=== PATIENT | male | born 1955 | race Caucasian/White ===

== ENCOUNTER 2019-11-10 13:02 | Inpatient (IN) | payer SELFPAY ==
[2019-11-10 14:30] LABS: #Monocytes 1.2 thou/uL (0.11-0.59); #Neutrophils 13.5 thou/uL (1.40-6.50); %Basophils 0.1 % (0.0-1.0); %Eosinophils 0.2 % (0.0-10.0); %Lymphocytes 6.2 % (21.0-51.0); %Monocytes 7.8 % (0.0-10.0); %Neutrophils 85.8 % (42.0-75.0); Hemoglobin 13.4 g/dL (14.0-18.0); Mean Corpuscular HGB CONC 31.5 g/dL (32.0-36.0); Mean Corpuscular Hemoglobin 27.6 pg (27.0-31.0); Mean Corpuscular Volume 87.5 fL (78.0-98.0); Mean Platelet Volume 8.3 fL (7.4-10.4); Platelet Count 672 thou/uL (130-400); RBC Distribution Width 12.1 % (11.5-14.5); Red Blood Cell (RBC) Count 4.84 mill/uL (4.70-6.10); White Blood Cell (WBC) Count 15.8 thou/uL (4.8-10.8)
[2019-11-10 14:54] LABS: ALT (SGPT) 107 U/L (8-55); AST (SGOT) 271 U/L (5-34); Albumin 3.4 g/dL (3.4-4.8); Alkaline Phosphatase 359 U/L (40-110); Anion Gap 28 mmol/L (10-20); BUN (Urea Nitrogen) 29 mg/dL (8.4-25.7); Bilirubin, Total 1.9 mg/dL (0.2-1.2); Calc. Creatinine Clearance 0 mL/min (70-130); Calcium 9.3 mg/dL (7.8-10.44); Carbon Dioxide 20 mmol/L (23-31); Chloride 91 mmol/L (98-107); Estimated GFR-MDRD 49; Globulin 4.4 g/dL (2.4-3.5); Glucose 262 mg/dL (80-115); Lipase 6 U/L (8-78); Potassium 5.7 mmol/L (3.5-5.1); Protein, Total 7.8 g/dL (5.8-8.1); Sodium 133 mmol/L (136-145)
[2019-11-10] MEDS ORDERED: Cefepime 2 GM VIAL ONE (15:27)
[2019-11-10] MEDS ORDERED: Senokot S 8.6-50 MG TAB PO PRN (15:53)
[2019-11-10] MEDS ORDERED: Bisacodyl 5 MG TAB PO PRN (15:53)
[2019-11-10] MEDS ORDERED: Acetaminophen 325 MG TAB PO PRN (15:53)
[2019-11-10] MEDS ORDERED: Morphine 2 MG/ML SYRINGE SLOW IVP PRN (15:57)
[2019-11-10] MEDS ORDERED: Ondansetron PF 4 MG/2 ML Vial IVP PRN (15:58)
[2019-11-10 16:59] LABS: CEA, Serum 7.96 ng/mL (< or = 5.0)
[2019-11-10 17:12] LABS: HBSAg Index 0.18 S/CO (0-0.99); Hep A IgM AB Non-Reactive (NonReactive); Hep A IgM S/CO 0.14 S/CO (0-0.79); Hep B Surf Ag Non-Reactive S/CO (NonReactive); Hep C IgG Ab Non-Reactive (NonReactive); Hep C Index 0.18 S/CO (0-0.79); Hepatitis B Core IgM Abs Non-Reactive (NonReactive)
[2019-11-10 17:39] VITALS: BMI 37.8
[2019-11-10] MEDS: Sodium Chloride 0.9% 1,000 ML IV SCH ×2 (18:44→20:49)
[2019-11-10] MEDS: Pantoprazole 40 MG VIAL IVP SCH (20:26)
[2019-11-10] MEDS: HYDROcodone/Acetaminophen 5/325 mg Tablet PO PRN (20:40)
--- NOTE | 2019-11-10 22:28 | HP ---
PRIMARY CARE PHYSICIAN: The patient reports that he was seen by a PA at [facility], unable to recall the name. CHIEF COMPLAINT: Abdominal discomfort associated with nausea and vomiting. HISTORY OF PRESENT ILLNESS: The patient is an unfortunate 63-year-old gentleman who has significant past medical history of diabetes type 2, hypertension, and dyslipidemia. He was presented to the ED in [place] about 10 days ago with similar complaint. At that time, he underwent CTA of the chest, abdomen, and pelvis. At that time, it was found that he has a 3.9-cm mediastinal mass adjacent to the esophagus, multiple pulmonology nodules. At that time, ER physician recommended that he needed to be admitted to the hospital for further workup, but he was concerned about his truck being towed. For that reason, he reports that he can follow up at outpatient, but due to COVID test that is pending, he is unable to see any doctors until today. His COVID came back negative. So, he came to ED for further workup. The patient reported in the past 2 weeks, he lost about 15 pounds. His symptom associated with epigastric pain. He was unable to eat. Most time, he only tolerates some full liquid diet. He denies any diarrhea. The patient reports that he had some subjective fever. He denies any recent travel history. No history of COVID exposure. The patient reports that he never had an EGD or colonoscopy done before. He denies any family members with histories of GI cancer. In the ED, his lab revealed that he had elevated LFT, with potassium of 5.7, white count of 15.8. No definitive source of infections identify. Given his symptomatology, hospitalist was asked to admit the patient for further GI workup. ALLERGIES: NO KNOWN DRUG ALLERGIES. HOME MEDICATIONS: The patient is unable to recall his home medications. REVIEW OF SYSTEMS: Complete review of systems has been reviewed and assessed with the patient. Negative and positive pertinent information noted in HPI. Otherwise, complete review of systems reviewed and negative. PAST MEDICAL HISTORY: 1. Hypertension. 2. Diabetes type 2. 3. Dyslipidemia. 4. Morbid obesity. PAST SURGICAL HISTORY: None. FAMILY HISTORY: The patient reports that his father had histories of prostate cancer. Otherwise, he denies any family history of GI cancer. SOCIAL HISTORY: The patient is a former smoker. He quit smoking about 15 years ago. He denies any history of alcohol or any recreational drug use. The patient reported that he lives in a trailer independently by himself. LABORATORY DATA: CBC; WBC 15.8, hemoglobin 13.4, hematocrit 42.4, and platelets 672. Chemistry; sodium 137, potassium 5.7, chloride is 91, carbon dioxide 20, BUN 29, creatinine is 1.4, calcium 9.3, total bilirubin is 1.9, AST 271, ALT 107, alkaline phosphatase 359. Lipase 6. CT aortic dissection protocol was done on 11/02/2019, no evidence of aortic dissections or aneurysmal dilation. There is a mass adjacent to the esophagus that could resemble enlarged lymph nodes or esophageal malignancy. There is slight thickening of the wall of the distal esophagus. There are enlarged lymph nodes in the upper retroperitoneum and his loyd hepatis regions as well as the retrocrural space. Slightly enlarged mediastinal lymph nodes are seen. This is concerning for metastatic disease. There are multiple pulmonary nodules concerning for metastatic disease. There is likely hepatic metastatic disease. PHYSICAL EXAMINATION: VITAL SIGNS: Blood pressure 139/89, pulse 95, respiratory rate 18, temperature is 97.8, O2 saturation 97% on room air. General Appearance: NAD, Alert and Oriented HEENT: Normal cephalic atraumatic, mucous membrane is moist, PERRLA Neck: Supple, no lymphadenopathy Cardiovascular: RRR, S1S2 Noted. No murmur Pulmonology: Clear to auscultation bilaterally. No crackles or wheezing Abdomen: Tender to palpation at epigastric area. Positive bowel sound Extremities: No edema, no cyanosis Neurologic: CN 2-12 grossly intact. No focal weakness Psych: AAO x3, normal affect Skin: No rash ASSESSMENT AND PLAN: This is an unfortunate 63-year-old gentleman who has significant past medical history of diabetes, hypertension, and dyslipidemia, who was presented to the ED with 2 weeks histories of abdominal discomfort associated with nausea, vomiting, and weight loss. The patient was initially seen at [place] ER on November 02, 2019 with a similar complaint. At that time, workup reviewed concerning for metastatic disease. However, the patient did not follow up until today. He came to the ER with similar complaint. He is now being admitted for further workup. 1. Epigastric abdominal pain associated with nausea and vomiting and weight loss , concern for underlying metastatic disease. Lipase wnl. 2. Metastatic disease suspect GI etiology as primary. 3. Multiple pulmonology nodules concerning for metastatic disease. 4. Elevated LFT, likely secondary to above. 5. Mild hyperkalemia. 6. Acute kidney injury - mild, likely secondary to poor p.o. intake. 7. Diabetes type 2. 8. Hypertension. 9. Dyslipidemia. The patient was admitted to medical floor for further GI workup. The patient will likely need EGD with tissue biopsy. I have discussed with GI, Dr. Mims. The patient is being evaluated by him. He also recommend MRCP given the fact that he has had elevated LFT. We would like to make sure there are no biliary tract compressions by masses in that way he can proceed with further interventions during the EGD procedure if necessary. The patient will keep on clear liquids for now, n.p.o. after midnight. We will place him on PPI IV b.i.d. IV fluid hydration. Repeat lab in a.m. I will check tumor markers including CEA, PSA, AFP, and acute hepatitis panel. We will start him on insulin sliding scale for now, check a hemoglobin A1c. GI prophylaxis. The patient currently is on PPI empirically as mentioned above. DVT prophylaxis. We will keep patient on SCD for now, with anticipated procedure. Code status: The patient is full code per his request. Job ID: [id number] MTDD
--- NOTE | 2019-11-11 02:42 | CON ---
DATE OF CONSULTATION: 11/10/2019 REASON FOR CONSULTATION: Abnormal GI imaging, abdominal pain. CONSULTING PROVIDER: Ashlie Gaxiola PA-C HISTORY OF PRESENT ILLNESS: The patient is a 63-year-old male with past medical history of diabetes, hyperlipidemia, hypertension, and GERD, initially presenting with complaints of fever and midepigastric abdominal pain. He states that he was in his usual state of health until approximately 2 weeks ago when he began having intermittent bouts of fever and midepigastric abdominal pain, for which the patient started taking increasing amounts of acetaminophen for control. The midepigastric abdominal pain was characterized as a pressure type sensation, would radiate to the entire abdomen, was constant with waxing/waning severity, and reached a severity of 9/10. This pain was worse with lying down, pressure to the region, and eating solid foods, particularly spicy foods and tomato based products, but the pain was also better with ingestion of ice cream and pain medications. With the continuation of this fever and abdominal pain, it prompted him to seek healthcare assistance at the ER, at which point, the patient underwent a CT scan on November 02, 2019, which showed multiple lung nodules, the largest being 1.5 cm in size with emphysematous change. However, there was a 3.9 cm mediastinal mass adjacent to the esophagus with wall thickening at the GE junction as well as a large number of enlarged mediastinal lymph nodes, subtle hypodense lesions in the liver measuring up to 2.2 cm and loyd hepatis lymph nodes measuring up to 5.5 cm. In addition to these findings, fatty infiltration of the liver was also noted, but no evidence of cirrhotic morphology. The patient was advised to be admitted to the hospital for further workup, but ultimately left AMA. However, the patient presented back to the hospital on November 09 and is now willing to undergo treatment/evaluation. Currently, the patient states that he has been having increased diarrhea, having approximately 1-2 liquid bowel movements per day. He also did have nausea and vomiting x1 over the last week, but has not recurred. Lastly, he does endorse a weight loss of approximately 15 pounds over the last 2 to 3 weeks unintentionally. Although, he does deny constipation, hematemesis, melena, hematochezia, dysphagia, or odynophagia. REVIEW OF SYSTEMS: A 10-category review of systems was obtained with all responses negative except for the pertinent positives as listed in HPI. PAST MEDICAL HISTORY: As per HPI. PAST SURGICAL HISTORY: None. FAMILY HISTORY: Denies any GI malignancies. SOCIAL HISTORY: Denies any tobacco or alcohol use, but does have a former history of IV narcotics. OUTPATIENT MEDICATIONS: Unknown. ALLERGIES: NO KNOWN DRUG ALLERGIES. PHYSICAL EXAMINATION: VITAL SIGNS: Temperature 97.5, pulse 108, blood pressure 143/80, respiratory rate 20, and saturating 95% on room air. GENERAL: The patient was lying in bed, in no acute distress. Alert and oriented x4. HEENT: Normocephalic and atraumatic. NECK: Supple. No JVD or scleral icterus noted. CARDIOVASCULAR: Tachycardic rate, but regular rhythm with no discernible murmurs, gallops, or rubs. RESPIRATORY: Clear to auscultation bilaterally with no discernible wheezes or rales. ABDOMEN: Normoactive bowel sounds. Soft, nondistended. Tenderness to palpation in the midepigastric and right upper quadrant. EXTREMITIES: No cyanosis, clubbing, or edema. LABORATORY DATA: CBC with a white blood cell count of 15.8, hemoglobin 13.4, hematocrit 42.4, platelets 672. Chemistry with a sodium of 133, potassium 5.7, chloride 91, CO2 of 20, BUN 29, creatinine 1.44, glucose 262. AST 271, ALT 107, alkaline phosphatase 359, total bilirubin 1.9, lipase 6, albumin 3.4. IMAGING DATA: CT of the chest dissection protocol was obtained on November 02, 2019, which showed multiple lung nodules with the largest being 1.5 cm in size with the lung showing also emphysematous change. A 3.9 cm mediastinal mass adjacent to the esophagus and possibly involving the esophagus with wall thickening at the GE junction was seen in addition to a large number of enlarged mediastinal lymph nodes. Subtle hypodense lesions in the liver as well as lymph nodes in the loyd hepatis were concerning for metastatic disease. Fatty infiltration was also noted within the liver. ASSESSMENT AND PLAN: The patient is a 63-year-old male with past medical history of diabetes, hyperlipidemia, hypertension, and gastroesophageal reflux disease, presenting with increased midepigastric abdominal pain, fever, and abnormal GI imaging showing a mass adjacent to the esophagus concerning for malignancy with metastatic disease. Midepigastric abdominal pain/abnormal GI imaging; the patient is presenting with increased abdominal pain characterized as a pressure-type sensation that was located in the midepigastric region, but generalized into the entire abdomen and reaching a severity of 9/10. With worsening of this abdominal pain and in association with fever with T-max of 100.2 at home, it prompted the patient to seek healthcare assistance, where he had a CT scan showing a 3.9 cm mass adjacent to the esophagus with multiple mediastinal lymph nodes in addition to hypodense lesions within the liver and multiple loyd hepatis lymph nodes measuring up to 5.5 cm. At this time, it looks consistent with either an esophageal adenocarcinoma with metastatic disease to the lungs, liver, and lymph nodes versus a mediastinal malignancy again with metastatic disease. However, based on his current LFT profile, it is more indicative of an obstructive-type process, but could also be due to infiltration of this metastatic disease, although further imaging is needed to clarify if this is an obstructive process. RECOMMENDATIONS: 1. Would obtain an MRCP for further characterization of the biliary tree to determine if there is an obstructive process in need of stent placement prior to treatment of this metastatic disease. 2. We would continue to trend his LFTs daily for worsening of the obstructive process or inflammation of the liver. 3. Once the MRCP is known, then I would recommend an EGD for intraluminal evaluation and possible biopsies of the esophageal mass. If biliary obstruction is noted on the MRCP, then an ERCP could be performed at the same time with biliary stent placed at that time as well. 4. Pain control per primary team. 5. We will place the patient on pantoprazole 40 mg IV daily for possible acid reflux. We will continue to follow. Please call with any questions. Job ID: [id number]
[2019-11-11 05:55] LABS: INR-International Normal Ratio 1.3; Prothrombin Time 15.8 sec (12.0-14.7)
[2019-11-11 06:11] LABS: ALT (SGPT) 76 U/L (8-55); AST (SGOT) 145 U/L (5-34); Albumin 2.8 g/dL (3.4-4.8); Alkaline Phosphatase 273 U/L (40-110); Anion Gap 17 mmol/L (10-20); BUN (Urea Nitrogen) 34 mg/dL (8.4-25.7); Bilirubin, Total 1.4 mg/dL (0.2-1.2); Calc. Creatinine Clearance 144 mL/min (70-130); Calcium 8.4 mg/dL (7.8-10.44); Carbon Dioxide 24 mmol/L (23-31); Chloride 96 mmol/L (98-107); Estimated GFR-MDRD 85; Globulin 3.4 g/dL (2.4-3.5); Glucose 141 mg/dL (80-115); Protein, Total 6.2 g/dL (5.8-8.1); Sodium 133 mmol/L (136-145)
[2019-11-11 06:13] LABS: Band 1 % (5-11); Eosinophils 1 % (0-10); Hemoglobin 11.8 g/dL (14.0-18.0); Lymphocytes 4 % (21-51); MDiff Complete? YES; Mean Corpuscular HGB CONC 31.7 g/dL (32.0-36.0); Mean Corpuscular Hemoglobin 27.2 pg (27.0-31.0); Mean Corpuscular Volume 85.8 fL (78.0-98.0); Mean Platelet Volume 7.6 fL (7.4-10.4); Monocytes 9 % (0-10); Neutrophil 85 % (42-75); Platelet Count 709 thou/uL (130-400); Platelet Morphology Comment Appears Increased; RBC Distribution Width 11.9 % (11.5-14.5); RBC Morphology Normal; Red Blood Cell (RBC) Count 4.33 mill/uL (4.70-6.10); White Blood Cell (WBC) Count 17.7 thou/uL (4.8-10.8)
[2019-11-11] MEDS: Pantoprazole 40 MG VIAL IVP SCH ×2 (07:33→21:01)
--- NOTE | 2019-11-11 09:49 | RAD ---
RADIOGRAPH CHEST 1 VIEW: DATE: 11/11/2019 HISTORY: 63-year-old male with leukocytosis FINDINGS: There is no airspace density, pulmonary edema, or pneumothorax. The lateral costophrenic angles are n ot effaced. There is a noncalcified pulmonary nodule overlying the right lung base. See separate report of recent aortic CTA. IMPRESSION: 1. No acute pulmonary findings. 2. pulmonary nodule at right lung base.
[2019-11-11 10:23] LABS: Bacteria/HPF None Seen HPF (None Seen); Bilirubin Negative (Negative); Blood, Urine Trace (Negative); Clarity Clear (Clear); Glucose, Urine (Dipstick) Normal (Negative); Ketone, Urine 40 mg/dL (Negative); Leukocyte Negative Leu/uL (Negative); Nitrite Negative (Negative); Protein, Urine (Dipstick) 70 mg/dL (Neg-Trace); RBC/HPF 0-3 HPF (0-3); Specific Gravity, Urine 1.021 (1.002-1.036); Squamous Epithelial 0-3 HPF (0-3); Urobilinogen 3 mg/dL (Less than 2); WBC/HPF 0-3 HPF (0-3); pH, Urine 5.5 (5.0-9.0)
--- NOTE | 2019-11-11 11:46 | MRI ---
MRI OF THE ABDOMEN WITHOUT CONTRAST: INDICATION: A 63-year-old male with metastatic disease and elevated LFTs. COMPARISON: CTA aortic dissection protocol dated 11/02/2019. TECHNIQUE: Multiplanar, multisequence MR images were obtained of the abdomen utilizing MRCP protocol. The patie nt had difficulty in completing the full examination due to pain and discomfort. Respiratory motion artifact and positional changes during the examination heavily limit the evaluation. FINDINGS: As seen on the comparison CT examination dated 11/02/2019 are multiple signal abnormalities within the liver, many of which in the right hepatic lobe are nodular and consistent with multiple metastatic l esions. One of the largest measures 3.2 cm within the dome. There is a large area of heterogeneous T2 increased signal involving portions of the right hepatic lobe as well as the left hepatic lobe eleonora suring approximately 24 cm suspicious for a large hepatic malignancy. There are diminished flow void s within the distal left main portal vein suspicious for thrombosis. The left main portal vein appea rs thrombosed on the CTA examination dated 11/02/2019. There are multiple enlarged lymph nodes within the upper abdomen and paraspinal and paraesophageal re gion. One of the largest is seen within the upper abdomen, adjacent to the posterior aspect of the p osterior aspect of the gastric cardia, measuring 5.6 cm. No visible intraluminal gallstone is evident. The common bile duct is of normal caliber measuring 3. 5 mm. Main pancreatic duct is normal appearing. Adrenal glands are normal appearing. The kidneys a re normal appearing. There is a mild left UPJ obstruction, likely chronic. The spleen is normal siz e measuring 11 cm. There is mild free fluid within the abdomen. IMPRESSION: 1. Large area of heterogeneous signal abnormality involving portions of the right hepatic lobe and l eft hepatic lobe are suspicious for an invasive hepatic malignancy such as a hepatocellular carcinoma or cholangiocarcinoma. There is thrombosis of the left main portal vein. There are numerous signal abnormalities within the hepatic lobe suspicious for metastatic disease. There are numerous enlarge d lymph nodes within the paraesophageal upper abdomen consistent with malignant lymph node spread of disease. There is a pulmonary nodule in the right lower lobe consistent with pulmonary metastatic di sease. 2. No intraluminal gallstones or common bile duct stone demonstrate 3. Mild ascites. POS: BH
--- NOTE | 2019-11-11 13:01 | PDOC.HOSPP ---
- Subjective Encounter Date: 11/11/19 Encounter Time: 12:45 Subjective: Patient returned from [facility]. He feels quite heavy on his right upper quadrant. discussed his elevated tumor markers and possible abnormality including GI related malignancy. Patient is not seems to be in extreme distress- stating that he is kind of expected. His father had unknown cancer - Objective Vital Signs & Weight: Vital Signs (12 hours) Temp Pulse Resp BP Pulse Ox 11/11/19 11:16 98.2 F 99 18 113/75 98 11/11/19 07:35 98 11/11/19 07:14 97.4 F L 115 H 20 114/81 97 11/11/19 03:59 97.6 F 99 18 112/67 98 Weight Weight 271 lb I&O: 11/10/19 11/11/19 11/12/19 06:59 06:59 06:59 Intake Total 1380 Output Total 800 Balance 580 Result Diagrams: 11/11/19 05:34 11/11/19 05:34 Additional Labs: Accuchecks 11/10/19 13:51 POC Glucose 284 H Hospitalist ROS - Medication Medications: Active Medications Generic Name Dose Route Start Last Admin Trade Name Freq PRN Reason Stop Dose Admin Hydrocodone Bitart/Acetaminophen 1 tab 11/10/19 15:53 11/10/19 20:40 [place] 5/325 PO 1 tab Q4H PRN Administration Moderate Pain (4-6) Sodium Chloride 1,000 mls @ 75 mls/hr 11/10/19 16:00 11/10/19 20:49 Normal Saline 0.9% IV 1,000 mls .[id number] NITZA Administration Pantoprazole Sodium 40 mg 11/10/19 21:00 11/11/19 07:33 Protonix IVP 40 mg Q12HR NITZA Administration - Exam General Appearance: NAD, awake alert Eye: PERRL ENT: normocephalic atraumatic Neck: supple Heart: RRR Respiratory: CTAB, normal chest expansion Gastrointestinal: soft, normal bowel sounds Neurological: no focal deficits Psychiatric: A&O x 3 Hosp A/P - Plan Abdominal discomfort weight loss Elevated CEA and alpha protein level. Elevated alkaline phosphatase Hyperbilirubinemia Normocytic anemia Transaminitis -Hepatitis panel negative Concern for a GI malignancy and possible mets to the liver versus hepatocellular carcinoma Right lower lobe pulmonary nodule probably metastatic disease Hypokalemia Acute kidney injury Type 2 diabetes mellitus MRCP shows large area of heterogeneous signal abnormality in the right hepatic lobe as well as left. -Concerning for hepatocellular carcinoma versus cholangiocarcinoma Left main portal vein thrombosis - likely no intervention with anticoagulation Paraesophageal lymphadenopathy No gallstones or common bile duct stones noted -Endoscopy evaluation -Protonix twice a day -Will request oncology evaluation after knowing the primary.
[2019-11-11] MEDS: HYDROcodone/Acetaminophen 5/325 mg Tablet PO PRN ×3 (13:43→21:44)
[2019-11-11] MEDS: Sodium Chloride 0.9% 1,000 ML IV SCH (17:46)
--- NOTE | 2019-11-11 19:10 | PRG ---
DATE OF SERVICE: 11/11/2019 REASON FOR CONSULTATION: Abnormal GI imaging, abdominal pain. SUBJECTIVE: Today, the patient states that his abdominal pain has improved a little bit, but has not resolved and continues to be present in the midepigastric/right upper quadrant region. He was able to undergo MRCP earlier today with some difficulty with the procedure itself, but was able to complete it successfully. He has also been able to tolerate a clear liquid diet without difficulty with evidence of dysphagia or odynophagia. He is concerned about the long-term management of a probable malignancy with metastatic spread and had questions about surgical versus medical interventions. Currently, he denies any nausea, vomiting, fevers, chills, hematemesis, melena, or hematochezia. OBJECTIVE: VITAL SIGNS: Temperature 97.5, pulse 91, blood pressure 129/84, respiratory rate 18, saturating 98% on room air. GENERAL: The patient was sitting at bedside, in no acute distress. Alert and oriented x4. CARDIOVASCULAR: Regular rate and rhythm. RESPIRATORY: Clear to auscultation bilaterally. ABDOMEN: Normoactive bowel sounds. Soft, nondistended. Tenderness to palpation in the midepigastric and right upper quadrant with fullness noted in the right upper quadrant. EXTREMITIES: No cyanosis, clubbing, or edema. LABORATORY DATA: CBC with a white blood cell count of 17.7, hemoglobin 11.8, hematocrit 37.1, platelets 709. INR 1.3. Chemistry with a sodium of 133, potassium 4, chloride 96, CO2 of 24, BUN 34, creatinine 0.9, glucose 141. AST 145, ALT 76, alkaline phosphatase 273, total bilirubin 1.4. IMAGING DATA: The patient underwent MRCP on November 11, 2019, which showed multiple signal abnormalities within the liver, many of which in the right hepatic lobe were nodular and consistent with metastatic lesion. The largest being 3.2 cm within the dome. However, there was a large area of heterogeneous T2 increased signal involving portions of the right hepatic lobe as well as the left hepatic lobe measuring approximately 24 cm in size, suspicious for a large hepatic malignancy. There were diminished flow voids within the distal left main portal vein consistent with portal vein thrombosis. Multiple large lymph nodes were also seen in the upper abdomen and paraspinal and paraesophageal region, the largest measuring up to 5.6 cm in size. No visible intraluminal gallstone was evident and the common bile duct was of normal caliber measuring 3.5 mm in size. The main pancreatic duct was also normal-appearing. ASSESSMENT AND PLAN: The patient is a 63-year-old male with past medical history of diabetes, hyperlipidemia, hypertension, and GERD, presenting with increased midepigastric abdominal pain, fever, and abnormal GI imaging showing metastatic disease with an unknown primary at this time, but strongly concerning for hepatocellular carcinoma. Midepigastric pain/abnormal GI imaging. The patient is presenting with increased abdominal pain characterized as a pressure-type sensation in the midepigastric region that had been present for the last few weeks. This was associated with fever with a maximum temperature of 100.2 at home. On initial evaluation at outside ER, he had a CT scan showing a 3.9 cm mass adjacent to the esophagus in addition to lymphadenopathy concerning for esophageal adenocarcinoma with metastatic disease to the lung, liver, and lymph nodes. However, based on MRCP obtained on November 11, 2019, it appears that there may be a 24 cm mass within the liver which is strongly concerning for the presence of hepatocellular carcinoma (which can generate a fever). When coupled with an alpha fetoprotein of 3728, it is also strongly concerning for the presence of a primary liver malignancy. RECOMMENDATIONS: 1. Would continue to trend his LFTs daily as part of continued monitoring of his liver and possible obstructive type picture. 2. Would recommend an upper endoscopy tomorrow for intraluminal evaluation of the possible esophageal mass. ERCP is not indicated at this time given lack of obstruction on MRCP with the elevated LFTs most likely due to metastatic lesions. 3. Pain control per primary team. 4. Continue pantoprazole 40 mg IV daily. 5. If the upper endoscopy tomorrow is negative for any intraluminal abnormalities, I would consult Interventional Radiology for possible liver biopsy to obtain a diagnosis of the primary malignancy and/or consultation of Medical Oncology for further evaluation. We will continue to follow. Please call with any questions. Job ID: [id number]
[2019-11-12] MEDS: HYDROcodone/Acetaminophen 5/325 mg Tablet PO PRN ×5 (04:16→20:23)
[2019-11-12 05:40] LABS: #Eosinphils 0.1 thou/uL (0.0-0.7); #Lymphocytes 1.5 thou/uL (1.20-3.40); #Monocytes 1.5 thou/uL (0.11-0.59); #Neutrophils 9.1 thou/uL (1.40-6.50); %Basophils 0.3 % (0.0-1.0); %Eosinophils 0.5 % (0.0-10.0); %Monocytes 12.1 % (0.0-10.0); %Neutrophils 75.2 % (42.0-75.0); Hemoglobin 11.5 g/dL (14.0-18.0); Mean Corpuscular HGB CONC 32.3 g/dL (32.0-36.0); Mean Corpuscular Hemoglobin 27.8 pg (27.0-31.0); Mean Corpuscular Volume 86.1 fL (78.0-98.0); Mean Platelet Volume 7.6 fL (7.4-10.4); Platelet Count 662 thou/uL (130-400); RBC Distribution Width 11.8 % (11.5-14.5); Red Blood Cell (RBC) Count 4.12 mill/uL (4.70-6.10); White Blood Cell (WBC) Count 12.1 thou/uL (4.8-10.8)
[2019-11-12 05:45] LABS: INR-International Normal Ratio 1.2; Prothrombin Time 15.2 sec (12.0-14.7)
[2019-11-12 06:02] LABS: ALT (SGPT) 56 U/L (8-55); AST (SGOT) 100 U/L (5-34); Albumin 2.6 g/dL (3.4-4.8); Alkaline Phosphatase 299 U/L (40-110); Anion Gap 14 mmol/L (10-20); BUN (Urea Nitrogen) 23 mg/dL (8.4-25.7); Bilirubin, Total 1.5 mg/dL (0.2-1.2); Calc. Creatinine Clearance 175 mL/min (70-130); Calcium 8.2 mg/dL (7.8-10.44); Carbon Dioxide 26 mmol/L (23-31); Chloride 99 mmol/L (98-107); Estimated GFR-MDRD Greater than 90; Glucose 119 mg/dL (80-115); Potassium 3.9 mmol/L (3.5-5.1); Protein, Total 5.6 g/dL (5.8-8.1); Sodium 135 mmol/L (136-145)
[2019-11-12] MEDS: Pantoprazole 40 MG VIAL IVP SCH ×2 (08:38→20:24)
[2019-11-12] MEDS: Sodium Chloride 0.9% 1,000 ML IV SCH ×2 (09:46→23:48)
[2019-11-12] MEDS ORDERED: Dextrose 50% Abboject 50 ML SYRINGE IVP PRN (10:22)
[2019-11-12] MEDS ORDERED: Dextrose 5% in Water 1,000 ML IV PRN (10:22)
[2019-11-12] MEDS ORDERED: PROPOFOL 200 MG/20 ML VIAL ONE (10:29)
[2019-11-12] MEDS ORDERED: Lidocaine 1% PF 5 ML VIAL ONE (10:29)
[2019-11-12 10:47] LABS: SARS-CoV-2 NAA Rapid Test Not Detected (NotDetected)
[2019-11-12] MEDS ORDERED: Ondansetron HCl/PF 4 MG/2 ML Vial IVP PRN (11:56)
[2019-11-12] MEDS ORDERED: Promethazine HCl 25 MG/ML VIAL SLOW IVP PRN (11:56)
[2019-11-12] MEDS ORDERED: Promethazine HCl 25 MG/ML VIAL IM PRN (11:56)
[2019-11-12 12:37] LABS: Total PSA 0.1 ng/mL (0.0-4.0)
--- NOTE | 2019-11-12 13:58 | PDOC.HOSPP ---
- Subjective Encounter Date: 11/12/19 Encounter Time: 09:40 Subjective: Patient is waiting to go for EGD. He is quite thirsty this morning. He is also quite anxious about his clinic prognosis. I discussed the care plan Including inviting oncologist to be on board. Patient is very active at baseline; [place] that keeps him busy for the most part of the day. Except the last week or so he was not very active given his symptoms. - Objective Vital Signs & Weight: Vital Signs (12 hours) Temp Pulse Resp BP Pulse Ox 11/12/19 08:00 97.4 F L 104 H 20 115/78 95 11/12/19 03:33 98.1 F 87 18 112/78 95 Weight Admit Weight 271 lb Weight 271 lb I&O: 11/11/19 11/12/19 11/13/19 06:59 06:59 06:59 Intake Total 1380 3300 Output Total 800 Balance 580 3300 Result Diagrams: 11/12/19 05:21 11/12/19 05:22 Additional Labs: Accuchecks 11/12/19 11:09 POC Glucose 194 H Hospitalist ROS - Medication Medications: Active Medications Generic Name Dose Route Start Last Admin Trade Name Freq PRN Reason Stop Dose Admin Hydrocodone Bitart/Acetaminophen 1 tab 11/10/19 15:53 11/12/19 12:24 [place] 5/325 PO 1 tab Q4H PRN Administration Moderate Pain (4-6) Sodium Chloride 1,000 mls @ 75 mls/hr 11/10/19 16:00 11/12/19 09:46 Normal Saline 0.9% IV 1,000 mls .[id number] NITZA Administration Ondansetron HCl 4 mg 11/10/19 15:58 11/12/19 12:27 Zofran IVP 4 mg Q6H PRN Administration Nausea/Vomiting Pantoprazole Sodium 40 mg 11/10/19 21:00 11/12/19 08:38 Protonix IVP 40 mg Q12HR NITZA Administration - Exam General Appearance: NAD, awake alert Eye: PERRL ENT: normocephalic atraumatic Neck: supple Heart: RRR Respiratory: CTAB, normal chest expansion Gastrointestinal: normal bowel sounds Neurological: no focal deficits Psychiatric: A&O x 3 Hosp A/P - Plan Abdominal discomfort weight loss Elevated CEA and alpha protein level. Elevated alkaline phosphatase Hyperbilirubinemia Normocytic anemia Transaminitis -Hepatitis panel negative Concern for a GI malignancy and possible mets to the liver versus hepatocellular carcinoma Right lower lobe pulmonary nodule probably metastatic disease Hypokalemia Acute kidney injury Type 2 diabetes mellitus MRCP shows large area of heterogeneous signal abnormality in the right hepatic lobe as well as left. -Concerning for hepatocellular carcinoma versus cholangiocarcinoma Left main portal vein thrombosis - likely no intervention with anticoagulation Paraesophageal lymphadenopathy No gallstones or common bile duct stones noted -Endoscopy evaluation -Protonix twice a day -Will request oncology evaluation after knowing the primary. -EGD planned for today. Differentials at this point would be esophageal cancer versus hepatocellular carcinoma. His PSA level is quite insignificant at 0.1. -Her WBC count is trending down. -Appreciate GI and oncology input. Patient lives with the family. His functional status is good at baseline. Has active lifestyle.
[2019-11-12] MEDS: HumaLOG 300 UNITS/3 ML VIAL SC PRN (16:49)
--- NOTE | 2019-11-12 17:44 | OP ---
DATE OF PROCEDURE: 11/12/2019 PROCEDURE: Esophagogastroduodenoscopy with biopsy. INDICATIONS FOR PROCEDURE: Abnormal GI imaging showing possible esophageal mass along with metastatic disease to the lungs, lymph nodes, and liver. DESCRIPTION OF PROCEDURE: After the risks and benefits of the procedure were explained to the patient including risk of bleeding, infection, perforation, reactions to anesthesia, aspiration, and/or pain, informed consent was obtained. The patient was then taken to the endoscopy suite, where he was maneuvered into the left lateral decubitus position, followed by introduction of deep sedation via propofol and anesthesia support. Once adequate sedation was achieved, the standard gastroscope was introduced into the mouth with intubation of the esophagus, stomach, and the proximal small intestines with the findings listed below. The patient tolerated the procedure well with no immediate perioperative complications. On conclusion of the procedure, all equipment was removed from the patient, and he was transferred to PACU in satisfactory condition. FINDINGS: Esophagus: Normal-appearing mucosa was seen in the proximal and mid esophagus; however, a large near-circumferential mass was encountered in the distal esophagus between 34 and 40 cm past the incisors. This mass was circumferential approximately 80% of the esophageal lumen and was near-obstructive but only occupied about 60% to 70% of the entire esophagus altogether. The mass itself was fungating and friable with a nodular-type appearance across the superficial aspect of the mass. Multiple biopsies were taken and placed in a specimen jar for further evaluation. Upon traversing the mass, there was a 3 to 4 cm expanse of esophagus that was not involved prior to getting to the GE junction. Otherwise, there was no evidence of erosions at the GE junction nor was there any evidence of active or recent bleeding. Stomach: Normal-appearing mucosa was seen in the gastric cardia, fundus, body, greater curvature, antrum, and incisura. However, extrinsic compression of the distal stomach was seen but not a submucosal abnormality and no changes to the mucosa of the stomach itself. There was no evidence of erosions, ulcerations, mass lesions, or active/recent bleeding. Duodenum: Normal-appearing mucosa was seen in both the duodenal bulb and second portion of the duodenum. There was no evidence of erosions, ulcerations, mass lesions, or active/recent bleeding. IMPRESSION: 1. A large near-circumferential mass seen in the distal esophagus occupying 60% to 70% of the esophageal lumen, now status post biopsies (concerning for squamous cell carcinoma of the esophagus versus metastatic disease). 2. Extrinsic compression of the distal stomach consistent with mass effect from the liver. 3. Otherwise, normal upper endoscopy. RECOMMENDATIONS: 1. Would follow up on the biopsy results with further care guided by the pathology report. 2. Would consult Medical Oncology Service for evaluation of the biopsies and evaluation of the patient for possible chemotherapy. 3. Pain control per primary team. 4. We will continue pantoprazole 40 mg daily in light of this esophageal mass and possible acid reflux contributing to his pain. Given that the staging imaging has already been performed and biopsies are pending, I would defer to Medical Oncology for further management at this point. At the current time, the patient's mass is not near-obstructive that would necessitate the placement of a feeding tube prior to treatment. We will sign off at this time. Please call with any questions. Job ID: [id number]
--- NOTE | 2019-11-12 22:43 | CON ---
DATE OF CONSULTATION: HISTORY OF PRESENT ILLNESS: The patient is a 63-year-old male from [place], [place], who was admitted with weight loss, abdominal pain, and weakness on November 09. He has been having some symptom of not feeling well and food not tasting right for about 2 months and has lost approximately 20 pounds of weight. He had CT scan of chest and abdomen using aortic dissection protocol on 11/01 showing bilateral lung nodules, the largest being 1.5 cm. There was a mediastinal mass close to esophagus measuring 3.9 cm and another mediastinal lymph node measuring 1.5 cm. There were hypodensities in liver reaching the possibility of metastasis measuring up to 2.2 cm. A 5.5 cm lymph node was seen in loyd hepatis and there were additional enlarged retrocrural lymph node. During this hospitalization, he underwent MRI of the abdomen showing multiple signal abnormalities within the liver where the largest measured 3.2 cm. Question of portal vein thrombosis was also raised. There were multiple lymph nodes in the abdomen measuring up to 5.6 cm. The patient underwent upper GI endoscopy earlier today revealing a large near circumferential mass in distal esophagus between 34 and 40 cm from the incisors, it was nearly obstructing. The mass itself was fungating and friable. A 3 to 4 cm of distal esophagus was uninvolved before getting to GE junction. The patient denies of excessive drinking. He has not used intravenous drugs, though had used recreational drugs orally like methamphetamine. He denied of previous liver diseases such as hepatitis. Drugs with adverse effect, none reported. MEDICATIONS: Home medications include: 1. Glimepiride 4 mg q.a.m. 2. Metformin 1 g p.o. b.i.d. In the hospital, he is on: 1. [place] 5/325. 2. Insulin. 3. Morphine sulfate. 4. Zofran. 5. Protonix. PAST MEDICAL HISTORY: Positive for hypertension, diabetes, dyslipidemia, and obesity. PAST SURGICAL HISTORY: None. FAMILY HISTORY: Father had prostate cancer. PERSONAL AND SOCIAL HISTORY: The patient quit smoking 15 years ago. He lives in a trailer independently by himself in [place], [place]. The trailer is located on a property and he has a sister and nieces who live on the same property. The patient has been single all his life and does not have any children. The patient worked in [employer] for about 40 years. He is not sure if he qualifies for VA benefit. PHYSICAL EXAMINATION: GENERAL: The patient appears appropriate for his age and is alert and oriented. VITAL SIGNS: Height 5 feet 11 inches, weight 271 pounds, body surface area 2.48 m2. Temperature 97.6, pulse 98, blood pressure 123/81. HEENT: Unremarkable. There is no peripheral lymphadenopathy in cervical, supraclavicular, axillary, or inguinal area. CHEST: Clear to auscultation. HEART: S1, S2. Regular rhythm. ABDOMEN: The liver is grossly enlarged and tender. No other abdominal masses felt. EXTREMITIES: 1+ bipedal edema. No calf tenderness. IMAGING STUDIES: Already mentioned. LABORATORY DATA: WBC 12,100, hemoglobin 11.5, platelets 362,000. Differential shows 75.2% neutrophils and 12% lymphocytes. Chemistry profile showed the abnormal values of glucose up to 203, calcium 8.2, total bilirubin 1.5, AST 100, ALT 56, alkaline phosphatase 299. Total protein 5.6 with albumin of 2.6. CEA 7.96. Alpha-fetoprotein 3728. ASSESSMENT AND RECOMMENDATION: This patient likely has metastatic hepatocellular carcinoma with metastasis to lungs and abdominal lymph nodes. He has lower esophageal fungating mass. This has been biopsied, biopsy report pending. I did not talk much about chemotherapy because of the pending biopsy report. The patient felt that he may not want any treatment unless it is easily fixable. I did explain to him that most likely he has a treatable but incurable disease. Barriers to his treatment will be distance of about 95 and also the fact that he lives by himself. The patient felt that his family may be able to bring him back and forth. He also is currently uninsured, but will become Medicare eligible in a few weeks. I also explained to him that most likely he has VA benefits and that will be another option for coverage of his treatment. For now, I have ordered a bone scan for completing the staging. Thanks very much for asking me to participate in this patient's care. He will be followed by our service. Job ID: [id number]
[2019-11-13] MEDS: HYDROcodone/Acetaminophen 5/325 mg Tablet PO PRN ×4 (00:26→16:41)
[2019-11-13] MEDS: Pantoprazole 40 MG VIAL IVP SCH (08:22)
[2019-11-13] MEDS ORDERED: oxyCODONE ER 10 MG TAB PO SCH (12:00)
[2019-11-13] MEDS: HumaLOG 300 UNITS/3 ML VIAL SC PRN ×3 (12:22→20:39)
[2019-11-13] MEDS: Sodium Chloride 0.9% 1,000 ML IV SCH (12:28)
--- NOTE | 2019-11-13 13:15 | NM ---
WHOLE BODY BONE SCAN: HISTORY: Esophageal cancer RADIOPHARMACEUTICAL: 30 mCi technetium 99m-MDP injected intravenously COMPARISON: None FINDINGS: There scattered degenerative activity in the appendicular skeleton. No other abnormal areas of tracer localization are seen in the skeleton to suggest metastatic disease . Tracer excretion through the kidneys is within normal limits. IMPRESSION: No scintigraphic evidence of osseous metastatic disease.
--- NOTE | 2019-11-13 15:44 | PDOC.HOSPP ---
- Subjective Encounter Date: 11/13/19 Encounter Time: 15:40 Subjective: Patient returned from the nuclear medicine bone scan he is quite depressed and he says that he does not want to go around getting chemo. - Objective Vital Signs & Weight: Vital Signs (12 hours) Temp Pulse Resp BP BP Pulse Ox 11/13/19 11:18 97.5 F L 95 18 117/81 95 11/13/19 08:00 95 11/13/19 07:44 97.3 F L 95 16 123/85 95 11/13/19 05:15 97.5 F L 84 18 125/81 94 L Weight Admit Weight 271 lb Weight 271 lb I&O: 11/12/19 11/13/19 11/14/19 06:59 06:59 06:59 Intake Total 3300 1947 150 Balance 3300 1947 150 Result Diagrams: 11/12/19 05:21 11/12/19 05:22 Additional Labs: Accuchecks 11/13/19 11/13/19 11/12/19 11:27 05:19 20:38 POC Glucose 248 H 124 H 160 H 11/12/19 15:45 POC Glucose 203 H Hospitalist ROS - Medication Medications: Active Medications Generic Name Dose Route Start Last Admin Trade Name Freq PRN Reason Stop Dose Admin Hydrocodone Bitart/Acetaminophen 1 tab 11/10/19 15:53 11/13/19 09:17 [place] 5/325 PO 1 tab Q4H PRN Administration Moderate Pain (4-6) Sodium Chloride 1,000 mls @ 75 mls/hr 11/10/19 16:00 11/13/19 12:28 Normal Saline 0.9% IV Not Given .[id number] [facility] Insulin Human Lispro 0 units 11/12/19 10:22 11/13/19 12:22 Humalog SC 3 unit .MILD SLIDING SCALE PRN Administration MILD SLIDING SCALE Protocol Ondansetron HCl 4 mg 11/10/19 15:58 11/12/19 12:27 Zofran IVP 4 mg Q6H PRN Administration Nausea/Vomiting - Exam General Appearance: NAD, awake alert Eye: PERRL ENT: normocephalic atraumatic Neck: supple Heart: RRR Respiratory: CTAB, normal chest expansion Gastrointestinal: normal bowel sounds Neurological: cranial nerve grossly intact, no focal deficits Psychiatric: A&O x 3 Hosp A/P - Plan Abdominal discomfort weight loss Elevated CEA and alpha protein level. Elevated alkaline phosphatase Hyperbilirubinemia Normocytic anemia Transaminitis -Hepatitis panel negative Concern for a GI malignancy and possible mets to the liver versus hepatocellular carcinoma Right lower lobe pulmonary nodule probably metastatic disease Hypokalemia Acute kidney injury Type 2 diabetes mellitus MRCP shows large area of heterogeneous signal abnormality in the right hepatic lobe as well as left. -Concerning for hepatocellular carcinoma versus cholangiocarcinoma Left main portal vein thrombosis - likely no intervention with anticoagulation Paraesophageal lymphadenopathy No gallstones or common bile duct stones noted -Endoscopy evaluation -Protonix twice a day -Will request oncology evaluation after knowing the primary. -EGD planned for today. Differentials at this point would be esophageal cancer versus hepatocellular carcinoma. His PSA level is quite insignificant at 0.1. -Her WBC count is trending down. -Appreciate GI and oncology input. Patient lives with the family. His functional status is good at baseline. Has active lifestyle. Bone scan shows no osseous metastatic disease -Given the new diagnosis of esophageal cancer and patient's social status will request to the palliative to visit to the patient. Patient also can visit [facility] clinic per discretion We will finalize the care plan tomorrow with oncologist and needs to follow up for biopsy results w..them. -d/w GI and he might not be a sux'l candidate. -pt understandably 'kind of down' and says 'enough w.. the tests, and wants to go home'. - will expedite the dc process. Needs a plan for follow up etc...
--- NOTE | 2019-11-13 16:33 | PDOC.MOPN ---
Interval History: requiring more pain medication. Eating more - Vital Signs Vital Signs: Vital Signs (12 hours) Temp Pulse Resp BP BP Pulse Ox 11/13/19 15:27 98.2 F 96 18 117/81 98 11/13/19 11:18 97.5 F L 95 18 117/81 95 11/13/19 08:00 95 11/13/19 07:44 97.3 F L 95 16 123/85 95 11/13/19 05:15 97.5 F L 84 18 125/81 94 L Weight Admit Weight 271 lb Weight 271 lb - Physical Exam General: Alert HEENT: Other (poor dentition) Lungs: Clear to auscultation Cardiovascular: Regular rate Abdomen: Other (large liver, firm) Neurological: Normal speech - Labs Result Diagrams: 11/12/19 05:21 11/12/19 05:22 Lab results: Laboratory Results - last 24 hr 11/13/19 15:59: POC Glucose 178 H 11/13/19 11:27: POC Glucose 248 H 11/13/19 05:19: POC Glucose 124 H 11/12/19 20:38: POC Glucose 160 H Status: lab reviewed by me A/P - Problem (1) Esophageal mass Current Visit: Yes Code(s): K22.8 - OTHER SPECIFIED DISEASES OF ESOPHAGUS Status: Acute (2) Liver lesion Current Visit: Yes Code(s): K76.9 - LIVER DISEASE, UNSPECIFIED Status: Acute - Plan Plan: await final path on esophageal mass bone scan negative. AFP elevated, may need liver biopsy However, patient is resistant to move forward as he has financial, social, and transportation issues. Palliative care team consulted
[2019-11-13] MEDS: oxyCODONE ER 10 MG TAB PO SCH (20:32)
[2019-11-14] MEDS: HYDROcodone/Acetaminophen 5/325 mg Tablet PO PRN ×5 (00:53→23:36)
[2019-11-14] MEDS: Sodium Chloride 0.9% 1,000 ML IV SCH ×2 (01:31→16:37)
[2019-11-14] MEDS: oxyCODONE ER 10 MG TAB PO SCH ×2 (08:29→20:02)
--- NOTE | 2019-11-14 11:51 | PDOC.HOSPP ---
- Subjective Encounter Date: 11/14/19 Encounter Time: 09:30 Subjective: Spent more than 20 minutes in his room today. I tried to convince him to wait until biopsy results back then at least he has some answers and then he can take his own time to decide whether to follow-up with the treatment or palliative. I also talked to the oncologist Kary Akira. Based on conversation with the patient last 2 days he prefers to go without any treatment. He would likely benefit with a palliative approach. Await path report. - Objective Vital Signs & Weight: Vital Signs (12 hours) Temp Pulse Resp BP BP Pulse Ox 11/14/19 07:41 97.9 F 101 H 18 106/77 99 11/14/19 06:04 97.5 F L 85 18 111/79 97 11/14/19 00:55 97.9 F 86 18 124/87 96 Weight Admit Weight 271 lb Weight 271 lb I&O: 11/13/19 11/14/19 11/15/19 06:59 06:59 06:59 Intake Total 1946 3820 Balance 1946 3820 Result Diagrams: 11/12/19 05:21 11/12/19 05:22 Additional Labs: Accuchecks 11/14/19 11/13/19 11/13/19 06:07 20:43 15:59 POC Glucose 149 H 190 H 178 H Hospitalist ROS - Medication Medications: Active Medications Generic Name Dose Route Start Last Admin Trade Name Freq PRN Reason Stop Dose Admin Hydrocodone Bitart/Acetaminophen 1 tab 11/10/19 15:53 11/14/19 05:59 [place] 5/325 PO 1 tab Q4H PRN Administration Moderate Pain (4-6) Sodium Chloride 1,000 mls @ 75 mls/hr 11/10/19 16:00 11/14/19 01:31 Normal Saline 0.9% IV Not Given .[id number] NITZA Insulin Human Lispro 0 units 11/12/19 10:22 11/13/19 20:39 Humalog SC 2 unit .MILD SLIDING SCALE PRN Administration MILD SLIDING SCALE Protocol Ondansetron HCl 4 mg 11/10/19 15:58 11/12/19 12:27 Zofran IVP 4 mg Q6H PRN Administration Nausea/Vomiting Oxycodone HCl 10 mg 11/13/19 21:00 11/14/19 08:29 Oxycontin PO 10 mg Q12HR NITZA Administration Pantoprazole Sodium 40 mg 11/14/19 09:00 11/14/19 08:29 Protonix PO 40 mg DAILY NITZA Administration - Exam General Appearance: NAD, awake alert Eye: PERRL ENT: normocephalic atraumatic Neck: supple Heart: RRR, normal peripheral pulses Respiratory: CTAB, normal chest expansion Gastrointestinal: soft, normal bowel sounds Neurological: no focal deficits Psychiatric: A&O x 3 Hosp A/P - Plan Abdominal discomfort weight loss Elevated CEA and alpha protein level. Elevated alkaline phosphatase Hyperbilirubinemia Normocytic anemia Transaminitis -Hepatitis panel negative Concern for a GI malignancy and possible mets to the liver versus hepatocellular carcinoma Right lower lobe pulmonary nodule probably metastatic disease Hypokalemia Acute kidney injury Type 2 diabetes mellitus MRCP shows large area of heterogeneous signal abnormality in the right hepatic lobe as well as left. -Concerning for hepatocellular carcinoma versus cholangiocarcinoma Left main portal vein thrombosis - likely no intervention with anticoagulation Paraesophageal lymphadenopathy No gallstones or common bile duct stones noted -Endoscopy evaluation -Protonix twice a day -Will request oncology evaluation after knowing the primary. -EGD planned for today. Differentials at this point would be esophageal cancer versus hepatocellular carcinoma. His PSA level is quite insignificant at 0.1. -Her WBC count is trending down. -Appreciate GI and oncology input. Patient lives with the family. His functional status is good at baseline. Has active lifestyle. Bone scan shows no osseous metastatic disease -Given the new diagnosis of esophageal cancer and patient's social status will request to the palliative to visit to the patient. Patient also can visit [facility] per discretion We will finalize the care plan tomorrow with oncologist and needs to follow up for biopsy results w..them. -d/w GI and he might not be a sux'l candidate. -pt understandably 'kind of down' and says 'enough w.. the tests, and wants to go home'. - will expedite the dc process. Needs a plan for follow up etc... I also talked to the oncologist Ms. Champion. Based on conversation with the patient last 2 days he prefers to go without any treatment. He would likely benefit with palliative approach. Await path report. -He would probably require analgesic to control his symptoms. And he would also benefit with follow-up with the [facility] from palliative approach.
[2019-11-14] MEDS: HumaLOG 300 UNITS/3 ML VIAL SC PRN ×2 (12:19→20:05)
--- NOTE | 2019-11-14 15:46 | PDOC.FMACP ---
Advance Care Planning - Problem (1) Palliative care encounter Status: Acute Code(s): Z51.5 - ENCOUNTER FOR PALLIATIVE CARE (2) Esophageal mass Status: Acute Code(s): K22.8 - OTHER SPECIFIED DISEASES OF ESOPHAGUS (3) Liver lesion Status: Acute Code(s): K76.9 - LIVER DISEASE, UNSPECIFIED - Note Participants: patient, palliative care Summary: Palliative Care introduced Advanced Care Planning, opportunity to decline. The diagnosis, prognosis and goals of care were discussed. Appropriate forms and documentation to accomplish the goals of care were discussed. All questions were answered. Elected to complete MPOA, presented Directive to Physician. REmain with full resuscitation measures as of today, however is considering comfort verses curative care related to cancer diagnosis. The Palliative Care Team will continue to assist with completion of forms as identified. Please also refer to Palliative Care notes in note section Time Spent (mins): 20
[2019-11-15] MEDS: HYDROcodone/Acetaminophen 5/325 mg Tablet PO PRN ×5 (03:50→22:40)
[2019-11-15] MEDS: Sodium Chloride 0.9% 1,000 ML IV SCH ×2 (06:02→10:31)
[2019-11-15] MEDS: oxyCODONE ER 10 MG TAB PO SCH (09:13)
--- NOTE | 2019-11-15 11:17 | PDOC.MOPN ---
Interval History: c/o pain all over. - Vital Signs Vital Signs: Vital Signs (12 hours) Temp Pulse Resp BP Pulse Ox 11/15/19 03:50 97.7 F 83 18 115/73 96 11/14/19 23:41 97.5 F L 88 18 121/82 97 Weight Admit Weight 271 lb Weight 271 lb - Physical Exam General: Alert, Oriented x3, Mild distress HEENT: Atraumatic, PERRLA, EOMI, Mucous membr. moist/pink Cardiovascular: Regular rate, Normal S1, Normal S2, No murmurs, Gallops, Rubs Abdomen: Normal bowel sounds, Soft, No tenderness, No hepatospenomegaly, No masses, Other (hepatomegaly) Neurological: Normal speech - Labs Result Diagrams: 11/12/19 05:21 11/12/19 05:22 Lab results: Laboratory Results - last 24 hr 11/15/19 05:55: POC Glucose 147 H 11/14/19 20:10: POC Glucose 234 H 11/14/19 15:38: POC Glucose 220 H 11/14/19 12:14: POC Glucose 176 H Status: lab reviewed by me A/P - Problem (1) Esophageal mass Current Visit: Yes Code(s): K22.8 - OTHER SPECIFIED DISEASES OF ESOPHAGUS Status: Acute (2) Liver lesion Current Visit: Yes Code(s): K76.9 - LIVER DISEASE, UNSPECIFIED Status: Acute (3) Adenocarcinoma Current Visit: Yes Code(s): C80.1 - MALIGNANT (PRIMARY) NEOPLASM, UNSPECIFIED Status: Acute - Plan Plan: 1. path on esophageal mass shows invasive adenocarcinoma. May be metastatic cholangiocarcinoma. If seeking treatment would like liver biopsy. However, patient does not want further workup. He has advanced disease, if not two primary cancers. Discussed with DR. Wiggins. Chemo treatment would be difficult with many side effects. May extend life 6 months. Discussed this with patient. He wants to focus on comfort care. Consulted case management for hospice agencies in his area. Would like Hospice to be in touch with patient prior to dc as he has pain issues which will need management. [place] increased now for pain.
[2019-11-15] MEDS ORDERED: Methocarbamol 500 MG TAB PO PRN (11:31)
[2019-11-15] MEDS ORDERED: Polyethylene Glycol 3350 17 GM Packet PO PRN (11:34)
--- NOTE | 2019-11-15 11:45 | PDOC.HOSPP ---
- Subjective Encounter Date: 11/15/19 Encounter Time: 11:20 Subjective: Patient is resting. He does have a quite significant pain. I have adjusted his analgesic. Pathology report pending. - Objective Vital Signs & Weight: Vital Signs (12 hours) Temp Pulse Resp BP Pulse Ox 11/15/19 03:50 97.7 F 83 18 115/73 96 Weight Admit Weight 271 lb Weight 271 lb I&O: 11/14/19 11/15/19 11/16/19 06:59 06:59 06:59 Intake Total 3820 3300 400 Balance 3820 3300 400 Result Diagrams: 11/12/19 05:21 11/12/19 05:22 Additional Labs: Accuchecks 11/15/19 11/14/19 11/14/19 05:55 20:10 15:38 POC Glucose 147 H 234 H 220 H 11/14/19 12:14 POC Glucose 176 H Hospitalist ROS - Medication Medications: Active Medications Generic Name Dose Route Start Last Admin Trade Name Freq PRN Reason Stop Dose Admin Acetaminophen 650 mg 11/10/19 15:53 11/14/19 16:36 Tylenol PO 650 mg Q4H PRN Administration Headache/Fever/Mild Pain (1-3) Hydrocodone Bitart/Acetaminophen 1 tab 11/10/19 15:53 11/15/19 09:12 [place] 5/325 PO 1 tab Q4H PRN Administration Moderate Pain (4-6) Insulin Human Lispro 0 units 11/12/19 10:22 11/14/19 20:05 Humalog SC 3 unit .MILD SLIDING SCALE PRN Administration MILD SLIDING SCALE Protocol Ondansetron HCl 4 mg 11/10/19 15:58 11/12/19 12:27 Zofran IVP 4 mg Q6H PRN Administration Nausea/Vomiting Pantoprazole Sodium 40 mg 11/14/19 09:00 11/15/19 09:12 Protonix PO 40 mg DAILY NITZA Administration - Exam General Appearance: NAD, awake alert, ill appearing Eye: PERRL ENT: normocephalic atraumatic Neck: supple Heart: RRR Respiratory: CTAB Gastrointestinal: soft, distended Neurological: no focal deficits Psychiatric: A&O x 3 Hosp A/P - Plan Abdominal discomfort weight loss Elevated CEA and alpha protein level. Elevated alkaline phosphatase Hyperbilirubinemia Normocytic anemia Transaminitis -Hepatitis panel negative Concern for a GI malignancy and possible mets to the liver versus hepatocellular carcinoma Right lower lobe pulmonary nodule probably metastatic disease Hypokalemia Acute kidney injury Type 2 diabetes mellitus MRCP shows large area of heterogeneous signal abnormality in the right hepatic lobe as well as left. -Concerning for hepatocellular carcinoma versus cholangiocarcinoma Left main portal vein thrombosis - likely no intervention with anticoagulation Paraesophageal lymphadenopathy No gallstones or common bile duct stones noted -Endoscopy evaluation -Protonix twice a day -Will request oncology evaluation after knowing the primary. -EGD planned for today. Differentials at this point would be esophageal cancer versus hepatocellular carcinoma. His PSA level is quite insignificant at 0.1. -Her WBC count is trending down. -Appreciate GI and oncology input. Patient lives with the family. His functional status is good at baseline. Has active lifestyle. Bone scan shows no osseous metastatic disease -Given the new diagnosis of esophageal cancer and patient's social status will request to the palliative to visit to the patient. [facility] We will finalize the care plan tomorrow with oncologist and needs to follow up for biopsy results w..them. -d/w GI and he might not be a sux'l candidate. -pt understandably 'kind of down' and says 'enough w.. the tests, and wants to go home'. - will expedite the dc process. Needs a plan for follow up etc... I also talked to the oncologist Ms. Champion. Based on conversation with the patient last 2 days he prefers to go without any treatment. He would likely benefit with palliative approach. Await path report. -He would probably require analgesic to control his symptoms. And he would also benefit with [facility] from palliative approach. Pathology report pending Creased his analgesic doses along with a stool softener Patient prefers no oncology intervention at this time. He needs more of a palliative approach. I will request anesthesiologist to help us with the be adequate pain control in this cancer patient.
[2019-11-15] MEDS: Morphine IR Tab 15 MG TAB PO PRN ×3 (15:22→23:49)
[2019-11-15 15:29] LABS: ALT (SGPT) 64 U/L (8-55); AST (SGOT) 121 U/L (5-34); Albumin 3.1 g/dL (3.4-4.8); Alkaline Phosphatase 469 U/L (40-110); Anion Gap 15 mmol/L (10-20); BUN (Urea Nitrogen) 20 mg/dL (8.4-25.7); Bilirubin, Direct 1.4 mg/dL (0.1-0.3); Bilirubin, Total 1.8 mg/dL (0.2-1.2); Calc. Creatinine Clearance 154 mL/min (70-130); Calcium 8.5 mg/dL (7.8-10.44); Carbon Dioxide 25 mmol/L (23-31); Chloride 97 mmol/L (98-107); Estimated GFR-MDRD Greater than 90; Globulin 3.3 g/dL (2.4-3.5); Glucose 245 mg/dL (80-115); Potassium 4.7 mmol/L (3.5-5.1); Protein, Total 6.4 g/dL (5.8-8.1); Sodium 132 mmol/L (136-145)
[2019-11-15] MEDS: HumaLOG 300 UNITS/3 ML VIAL SC PRN (17:12)
[2019-11-15] MEDS: Senokot S 8.6-50 MG TAB PO SCH (19:47)
[2019-11-15] MEDS ORDERED: oxyCODONE ER 10 MG TAB PO SCH (21:00)
[2019-11-16] MEDS: Morphine IR Tab 15 MG TAB PO PRN ×3 (04:08→12:30)
[2019-11-16] MEDS: Senokot S 8.6-50 MG TAB PO SCH (08:15)
[2019-11-16] MEDS: HYDROcodone/Acetaminophen 5/325 mg Tablet PO PRN (09:48)
[2019-11-16] MEDS: HumaLOG 300 UNITS/3 ML VIAL SC PRN (12:32)
[2019-11-16 15:37] VITALS: BP 113/78; TEMP 97.6
--- NOTE | 2019-11-17 07:58 | DIS ---
DATE OF ADMISSION: 11/10/2019 DATE OF DISCHARGE: 11/16/2019 DISCHARGE DIAGNOSES: 1. New diagnosis of esophageal adenocarcinoma. 2. Hepatocellular cholangiocarcinoma cannot be ruled out completely. 3. Abdominal pain and weight loss secondary to this new diagnosis of gastrointestinal malignancy. 4. Elevated carcinoembryonic antigen and alpha-fetoprotein levels consistent with possible hepatic cholangiocarcinoma as primary versus metastatic liver disease. 5. Elevated alkaline phosphatase. 6. Hyperbilirubinemia. 7. Normocytic anemia. 8. Transaminitis secondary to malignancy. 9. Acute kidney injury. 10. Type 2 diabetes mellitus. 11. Left main portal vein thrombosis. 12. Paraesophageal lymphadenopathy. 13. Right lower lobe pulmonary nodule, probably metastatic disease. DISCHARGE MEDICATIONS: 1. Glimepiride 4 mg daily. 2. Metformin 1000 mg twice a day. 3. Protonix 40 mg daily. 4. Polyethylene glycol 17 g daily as needed for constipation. Hospice will follow up with the pain regimen medications. CONSULTS: Oncology and Gastroenterology as well as Palliative. The patient appears quite fatigued and tired. I have seen him the last 5 days. The patient is declining visibly in his functional status. He is also turning out to be slightly icteric. The patient still has not changed his mind regarding any aggressive intervention for chemo. Even with chemo, his life expectancy expected to prolong only about 6 months. I have also advised him to seek help with the [employer] [facility]. The patient declined that suggestion. PHYSICAL EXAMINATION: CARDIOVASCULAR: Regular rate and rhythm without murmurs, rubs, or gallops. LUNGS: Clear. ABDOMEN: Slightly distended, but bowel sounds are positive. EXTREMITIES: Right leg has trace ankle edema. Otherwise, no rash or petechia noted. NEUROLOGICAL: No focal neurological deficits. HOSPITAL COURSE: This is a 63-year-old male presented with abdominal pain, weight loss and poor p.o. intake of 3-week duration. He has occasional GERD symptoms, but nothing major to prompt him to seek medical attention until now. He was tired and had significant weight loss only the last few weeks. His symptoms are not over the months or years. We did several GI workup. He initially had leukocytosis trended to 12.1. He has several tumor markers, CEA of 7.96 and alpha-fetoprotein of 3700. His free PSA level is 0.04, total PSA is 0.1. His AST 121, ALT 64, alkaline phosphatase 469. He had some paraesophageal lymphadenopathy, left main portal vein thrombosis. No gallstones or common bile duct stones in the imaging studies. He had an EGD, showed large circumferential mass in the distal esophagus occupying about 80% of the esophageal lumen status post biopsy. Extrinsic compression of the distal stomach. Bone scan showed no scintigraphic evidence of osseous metastatic disease. Abdominal MRI showed large area of heterogeneous abnormality in the right as well as left hepatic lobe suspicious for invasive hepatic malignancy, cholangiocarcinoma, or hepatocellular carcinoma. Numerous enlarged lymph nodes in the paraesophageal area. Path on the esophageal mass showed invasive adenocarcinoma and maybe metastatic cholangiocarcinoma, so there could be 2 primaries; unless liver biopsy is done, we cannot confirm that. The patient is opted to comfort care/palliative approach. Hospice will be following with him at home. He does have significant amount of pain over the last 2 days. Treated with oxycodone as well as morphine. Hospice will be resuming the pain management at home. DISCHARGE INSTRUCTIONS: Activity as tolerated. Regular diet. Follow up with the PCP as needed in 1 week. TIME SPENT: Discharge time took over 35 minutes. Job ID: [id number] [facility]
--- NOTE | 2019-11-18 15:34 | EKG ---
Test Reason : ABDOMINAL PAIN Blood Pressure : / mmHG Vent. Rate : 094 BPM Atrial Rate : 094 BPM P-R Int : 148 ms QRS Dur : 092 ms QT Int : 362 ms P-R-T Axes : 006 -29 025 degrees QTc Int : 452 ms Normal sinus rhythm Septal infarct , age undetermined Abnormal ECG Confirmed by JOSE WOLF DO ([id number]), video news editor VAMSI DE GUZMAN ([id number]) on 11/18/2019 3:34:15 PM Referred By: Confirmed By:JOSE WOLF DO
== END 2019-11-16 16:11 | disposition hospice, home (50) | DRG 374 ==
LOC: ERS 13:02 → SJJU 16:37
PROVIDERS: ADMIT Family Medicine; ATTEND Family Medicine
PROC: 0DB58ZX Excision of Esophagus, Via Natural or Artificial Opening Endoscopic, Diagnostic (ICD-10-PCS; principal; 2019-11-12)
DX: C15.5 Malignant neoplasm of lower third of esophagus (principal); I81 Portal vein thrombosis; Z51.5 Encounter for palliative care; N17.9 Acute kidney failure, unspecified; E11.9 Type 2 diabetes mellitus without complications; I10 Essential (primary) hypertension; E78.5 Hyperlipidemia, unspecified; E66.01 Morbid (severe) obesity due to excess calories; E87.5 Hyperkalemia; K21.9 Gastro-esophageal reflux disease without esophagitis; D64.9 Anemia, unspecified; E87.6 Hypokalemia; E80.6 Other disorders of bilirubin metabolism; R91.1 Solitary pulmonary nodule; Z68.37 Body mass index [BMI] 37.0-37.9, adult; Z87.891 Personal history of nicotine dependence
CPT/HCPCS: 36415; 36416; 71045; 74181; 78306; 80053; 80074; 80076; 81003; 81015; 82105; 82378; 83690; 84153; 84154; 84484; 85007; 85025; 85027; 85610; 88305; 88313; 88341; 88342; 93005; 96365; A9503; C9113; J0692; J2405; J2704; U0002